=== PATIENT | male | born 1975 | race Caucasian/White ===

== ENCOUNTER 2023-02-19 15:55 | Outpatient (AMB) | payer BC, SELFPAY ==
--- NOTE | 2023-02-19 16:27 | AM.OFFWIN_ITS ---
Intake Vital Signs 02/19/23 16:28 Height 5 ft 11 in BP 124/80 Blood Pressure Location Lt brachial Position Sitting Pulse 65 Pulse Source Pulse Oximeter Temp 96.9 F Temp Source Temporal Artery Scan Pulse Oximetry (%) 98 Oxygen Delivery Method Room Air Intake Visit Reasons: EP ear pain (lobby) Intake Note: Pt is here c/o bilateral ear pain. Pt states he feels he has an infection. Patient Tobacco Use Status: Never used Tobacco Allergies No Known Allergies Allergy (Unverified 02/20/23 05:42) Medication List - Last Reconciled 02/20/23 by Jimmy Suazo MD azithromycin take 500 mg today (day 1), then 250 mg for 4 days (days 2-5) PO Do you need a note to return to daycare/school/sports/work: No HPI EP ear pain (lobby) 2 HPI Details Patient presents for a sick visit. Reporting symptoms of sinus congestion, sore throat and difficulty swallowing. Low-grade fever. No family member is sick. No recent travel. Patient reports symptoms of malaise and fatigue. [facility] Social History Patient Tobacco Use Status: Never used Tobacco Physical Exam Vital Signs: Last Vital Signs Temp 96.9 F 02/19/23 16:28 Pulse 65 02/19/23 16:28 BP 124/80 02/19/23 16:28 Pulse Ox 98 02/19/23 16:28 Oxygen Delivery Method Room Air 02/19/23 16:28 Const General: cooperative and healthy appearing Nutritional Appearance: well nourished Orientation/consciousness: patient oriented x3 Limitations: no limitations HEENT Head: Yes normal to inspection Eyes General: appearance normal, both eyes and all related structures Neck Neck: Yes normal visual inspection Chest Chest palpation & inspection: normal palpation of entire chest wall Resp Effort & Inspection: normal respiratory effort Neuro General: patient oriented x3 Assessment & Plan Assessment & Plan (1) Upper respiratory tract infectious disease: Code(s): J06.9 - Acute upper respiratory infection, unspecified Plan: Antibiotics ordered. Increase fluid intake. Tylenol for aches and pains. If symptoms worsen, follow-up here for a recheck. Medications: New azithromycin take 500 mg today (day 1), then 250 mg for 4 days (days 2-5) PO 6 tabs 0RF azithromycin take 500 mg today (day 1), then 250 mg for 4 days (days 2-5) PO 6 tabs 0RF Coding Level of Care Code Est Pt Level 3 (13750) Diagnoses Upper respiratory tract infectious disease J06.9
[2023-02-19 16:28] VITALS: BP 124/80; PULSE 65; TEMP 36.1; O2SAT 98
== END 2023-02-19 16:48 | disposition home or self-care (01) ==
PROVIDERS: Visit Provider Internal Medicine
DX: J06.9 Acute upper respiratory infection, unspecified (principal)
CPT/HCPCS: 99213